=== PATIENT | male | born 1950 | race African-American/Black ===

== ENCOUNTER → 2016-12-20 | Outpatient (CLI) | payer MEDICARE, MEDICAID ==
[~2016-12-20] MED LIST: REGADENOSON INJ 0.4 MG/5 ML DISP.SYRIN IV ONE
--- NOTE | 2016-12-21 08:32 | RADIOLOGY REPORT ---
STRESS TEST REPORT PATIENT NAME: DALE YLNN ROOM#: DATE OF SERVICE: 12/20/2016 AGE: 66Y ORDER#: [id number] REFERRING MD: MILTON SCOTT M.D. INDICATION Chest pains. PROCEDURE PERFORMED REST/STRESS SINGLE ISOTOPE CARDIOLITE SPECT IMAGING WITH IV LEXISCAN STRESS AND GATED SPECT IMAGING CLINICAL HISTORY This is a 66-year-old white male with no known coronary artery disease, but has cardiac risk factors of Type II diabetes, hypertension, hypercholesterolemia, use of tobacco, and CKD. Current symptomatology includes chest pains. PROCEDURE The patient received IV Lexiscan 0.4 mg infused over ten seconds and flushed. The resting heart rate was 62 bpm and increased to 83 bpm eventually at end infusion. The resting BP was 151/74 and increased eventually to 167/71 after end infusion. The patient did not have any symptoms of chest pains but was slightly short of breath. The resting 12 lead EKG showed normal sinus rhythm, 62 bpm, left anterior fascicular block, T-inversions in the inferolateral leads, LVH. At end infusion, no increased T-inversions were seen. Myocardial perfusion imaging was performed at rest 60 minutes following injection of 14.43 mCi Cardiolite. Ten seconds after the IV Lexiscan injection, patient was injected with 45.5 mCi Cardiolite and flushed. Gated post stress tomographic imaging was performed 60 minutes after stress. FINDINGS The overall quality of the study is good. The left ventricular cavity is noted to be enlarged with end systolic volume of 91 cc on both the rest and stress studies. There is no abnormal transient ischemic dilatation of the left ventricle. TID ratio was 1.04. The overall LVEF is reduced to 35%. SPECT images showed a small area of moderate fixed perfusion defect in the apical inferior wall. There was no IV Lexiscan induced reversible ischemia. Gated SPECT imaging showed diffuse hypokinesis of all LV segments, in particular there was severe reduced motion contraction in the basal inferior wall. Left ventricular ejection fraction was calculated to be 35%. IMPRESSION: MYOCARDIAL PERFUSION IMAGING IS ABNORMAL. THERE IS A SMALL AREA OF MODERATELY FIXED PERFUSION DEFECT IN THE APICAL INFERIOR WALL. THERE WAS NO REVERSIBLE ISCHEMIA. OVERALL LEFT VENTRICULAR SYSTOLIC FUNCTION WAS REDUCED TO 35% WITH REDUCED MOTION AND CONTRACTION IN THE BASAL INFERIOR WALL, IN PARTICULAR, AND SOMEWHAT DIFFUSE HYPOKINESIS IN THE ENTIRE LEFT VENTRICLE. NO PRIOR STUDIES FOR COMPARISON. INTERPRETING PHYSICIAN: ELIZABETH BELTRÁN M.D. /: AICHA TT: [id number] ID: [id number] /: [id number] TD: [id number] JOB: [id number] cc:Ale SHRESTHA M.D. > [facility]
== END ==
LOC: RAD 06:55
PROVIDERS: ATTEND Internal Medicine Geriatric Medicine
DX: R07.89 Other chest pain (principal); R94.31 Abnormal electrocardiogram [ECG] [EKG]; I10 Essential (primary) hypertension
CPT/HCPCS: 93017; 78452; A9500; J2785; Q9969

== ENCOUNTER → 2018-01-10 | Outpatient (CLI) | payer MEDICARE, MEDICAID ==
[2018-01-10 17:27] LABS: ANION GAP 10 (5-19); BLOOD UREA NITROGEN 21 mg/dL (7-20); CALCIUM 9.2 mg/dL (8.4-10.2); CARBON DIOXIDE 23 mmol/L (22-30); CHLORIDE 114 mmol/L (98-107); GLUCOSE 101 mg/dL (75-110); POTASSIUM 4.5 mmol/L (3.6-5.0); SODIUM 147.4 mmol/L (137-145)
== END ==
LOC: OD 16:35
PROVIDERS: ATTEND Internal Medicine Geriatric Medicine
DX: N18.3 Chronic kidney disease, stage 3 (moderate) (principal)
CPT/HCPCS: 36415; 80048

== ENCOUNTER 2018-12-06 18:24 | Emergency (ER) | payer MEDICARE, MEDICAID ==
--- NOTE | 2018-12-06 19:42 | ER Document Report ---
ED Medical Screen (RME) - General Chief Complaint: Abdominal Pain Stated Complaint: ABDOMINAL PAIN Time Seen by Provider: 12/06/18 19:36 Primary Care Provider: MILTON SCOTT MD [Primary Care Provider] - Follow up as needed Mode of Arrival: Ambulatory Information source: Patient Notes: Patient is a delightful 68-year-old male presenting with abdominal pain that is been ongoing for approximately 10 days. He reports pain is mostly in the right side of the abdomen. He denies any nausea, vomiting or diarrhea. He denies fever. He states that he has had a decreased appetite. He reports no bowel movement in the last 2 to 3 days, he thinks it is possible that he is just severely constipated. Patient has not sought treatment for this. Exam: Tenderness to palpation of right lower quadrant without guarding or rebound. I have greeted and performed a rapid initial assessment of this patient. A comprehensive ED assessment and evaluation of the patient, analysis of test results and completion of the medical decision making process will be conducted by additional ED providers. Dictation of this chart was performed using voice recognition software; therefore, there may be some unintended grammatical errors. TRAVEL OUTSIDE OF THE [place] IN LAST 30 DAYS: No - Related Data Allergies/Adverse Reactions: No Known Allergies Allergy (Verified 12/06/18 18:25) Past Medical History - Social History Chew tobacco use (# tins/day): No Frequency of alcohol use: None Drug Abuse: Marijuana - Past Medical History Cardiac Medical History: Reports: Hx Hypertension Endocrine Medical History: Reports: Hx Diabetes Mellitus Type 1 Renal/ Medical History: Denies: Hx Peritoneal Dialysis Physical Exam - Vital signs Vitals: Temp Pulse Resp BP Pulse Ox 99.3 F 82 16 161/70 H 98 12/06/18 18:48 12/06/18 18:48 12/06/18 18:48 12/06/18 18:48 12/06/18 18:48 Course - Vital Signs Vital signs: Temp Pulse Resp BP Pulse Ox 99.3 F 82 16 161/70 H 98 12/06/18 18:48 12/06/18 18:48 12/06/18 18:48 12/06/18 18:48 12/06/18 18:48 Doctor's Discharge - Discharge Referrals: MILTON SCOTT MD [Primary Care Provider] - Follow up as needed
[2018-12-06 20:54] LABS: ABSOLUTE EOSINOPHILS # (AUTO) 0.2 10^3/uL (0.0-0.6); ABSOLUTE LYMPHOCYTES (AUTO) 1.7 10^3/uL (0.5-4.7); ABSOLUTE MONOCYTES (AUTO) 0.5 10^3/uL (0.1-1.4); ABSOLUTE NEUT (AUTO) 5.5 10^3/uL (1.7-8.2); BASOPHILS % (AUTO) 0.3 % (0-2); EOSINOPHILS % (AUTO) 2.3 % (0-6); HEMATOCRIT 44.3 % (37.9-51.0); HEMOGLOBIN 14.7 g/dL (13.5-17.0); LYMPHOCYTES % (AUTO) 21.9 % (13-45); MEAN CORPUSCULAR HGB CONC 33.2 g/dL (32.0-36.0); MEAN CORPUSCULAR VOLUME 84 fl (80-97); MONOCYTES % (AUTO) 6.8 % (3-13); PLATELET COUNT 191 10^3/uL (150-450); RED BLOOD COUNT 5.26 10^6/uL (4.35-5.55); SEGMENTED NEUTROPHILS % (AUTO) 68.7 % (42-78); TOTAL CELLS COUNTED % (AUTO) 100 %; WHITE BLOOD COUNT 7.9 10^3/uL (4.0-10.5)
--- NOTE | 2018-12-06 20:57 | RADIOLOGY REPORT (SQ) ---
EXAM DESCRIPTION: XR ABDOMEN 1 VIEW (KUB) COMPLETED DATE/TME: 12/06/2018 19:40 CLINICAL HISTORY: 68 years Male ,abd pain COMPARISON: None. TECHNIQUE: Single view of the abdomen was provided.. FINDINGS:Upper abdomen incompletely included on the image. No dilated loops of bowel to suggest obstruction. There are degenerative changes in the spine. There are moderate degenerative changes in the hips bilaterally with abundant osteophyte formation laterally. This may represent pincer deformity. Small amount of fecal material in the rectosigmoid. No abnormal calcifications noted. IMPRESSION: No acute plain film abnormality is identified. Degenerative changes in the hips with marginal osteophytosis that may reflect femoral acetabular impingement
[2018-12-06 21:12] LABS: ALANINE AMINOTRANSFERASE 29 U/L (21-72); ALBUMIN 4.5 g/dL (3.5-5.0); ALKALINE PHOSPHATASE 114 U/L (38-126); ANION GAP 13 (5-19); ASPARTATE AMINO TRANSFERASE 22 U/L (17-59); BILIRUBIN,DIRECT 0.3 mg/dL (0.0-0.4); BILIRUBIN,TOTAL 0.9 mg/dL (0.2-1.3); BLOOD UREA NITROGEN 24 mg/dL (7-20); CALCIUM 8.6 mg/dL (8.4-10.2); CARBON DIOXIDE 25 mmol/L (22-30); CHLORIDE 109 mmol/L (98-107); LIPASE 202.2 U/L (23-300); POTASSIUM 4.7 mmol/L (3.6-5.0); SODIUM 146.7 mmol/L (137-145); TOTAL PROTEIN 7.3 g/dL (6.3-8.2)
[2018-12-06 21:20] LABS: GLUCOSE 61 mg/dL (75-110)
[2018-12-06 21:31] LABS: APPEARANCE,URINE SLIGHTLY-CLOUDY; BILIRUBIN,URINE NEGATIVE (NEGATIVE); COLOR,URINE AMBER; GLUCOSE, URINE NEGATIVE (NEGATIVE); KETONES,URINE TRACE mg/dL (NEGATIVE); LEUKOCYTE ESTERASE,URINE SMALL (NEGATIVE); NITRITE,URINE NEGATIVE (NEGATIVE); PROTEIN,URINE 30 mg/dL (NEGATIVE); URINE SPECIFIC GRAVITY 1.025
[2018-12-06] MEDS ORDERED: NORMAL SALINE 1000 ML 1,000 ML IV ONE (22:59)
--- NOTE | 2018-12-06 23:06 | ER Document Report ---
ED General - General Chief Complaint: Abdominal Pain Stated Complaint: ABDOMINAL PAIN Time Seen by Provider: 12/06/18 19:36 Primary Care Provider: MILTON SCOTT MD [Primary Care Provider] - Follow up as needed DALE METCALF MD [ACTIVE STAFF] - Follow up in 1 week Mode of Arrival: Ambulatory Information source: Patient, [facility] Records Notes: 68-year-old male with hypertension, type 1 diabetes presents with right upper quadrant abdominal pain that has been ongoing for approximately 2 weeks. Patient describes the pain as stabbing, intermittent and currently not present. He denies any associated nausea, vomiting, diarrhea. He does report that he feels like he is constipated. He denies any black or bloody stools. He denies any exacerbating or relieving factors, fever, chills, chest pain, shortness of breath, dysuria, hematuria. TRAVEL OUTSIDE OF THE [place] IN LAST 30 DAYS: No - HPI Onset: Other Onset/Duration: Gradual, Intermittent, Gone Quality of pain: Stabbing Severity: None Pain Level: Denies Associated symptoms: denies: Chest pain, Diarrhea, Fever, Nausea, Vomiting, Shortness of breath Exacerbated by: Denies Relieved by: Denies Similar symptoms previously: No Recently seen / treated by doctor: No - Related Data Allergies/Adverse Reactions: No Known Allergies Allergy (Verified 12/06/18 18:25) Past Medical History - General Information source: Patient - Social History Smoking Status: Current Every Day Smoker Chew tobacco use (# tins/day): No Frequency of alcohol use: None Drug Abuse: Marijuana Lives with: Family Family History: Reviewed & Not Pertinent Patient has suicidal ideation: No Patient has homicidal ideation: No - Past Medical History Cardiac Medical History: Reports: Hx Hypertension Endocrine Medical History: Reports: Hx Diabetes Mellitus Type 1 Renal/ Medical History: Denies: Hx Peritoneal Dialysis Review of Systems - Review of Systems Notes: REVIEW OF SYSTEMS: CONSTITUTIONAL : Denies fever, chills, or sweats. Denies recent illness. Denies weight loss, recent hospitalizations. EENT: Denies visual changes, eye pain. Denies sore throat, oral lesions, difficulty swallowing. CARDIOVASCULAR: Denies chest pain. Denies palpitations. Denies lower extremity edema. RESPIRATORY: Denies cough. Denies shortness of breath, wheezing. GASTROINTESTINAL: + abdominal pain or distention. Denies nausea, vomiting, or diarrhea. Denies blood in vomitus, stools, or per rectum. Denies black, tarry stools. Denies constipation. GENITOURINARY: Denies difficulty urinating, painful urination, frequency, blood in urine, testicular pain or penile discharge. MUSCULOSKELETAL: Denies back or neck pain or stiffness. Denies joint pain or swelling. SKIN: Denies rash, lesions or sores. HEMATOLOGIC : Denies easy bruising or bleeding. LYMPHATIC: Denies swollen glands. NEUROLOGICAL: Denies confusion or altered mental status. Denies loss of co nsciousness. Denies dizziness or lightheadedness. Denies headache. Denies weakness or paralysis. Denies problems difficulty with ambulation, slurred speech. Denies sensory loss, numbness, or tingling. Denies seizures. PSYCHIATRIC: Denies anxiety or stress. Denies depression, suicidal ideation, or Physical Exam - Vital signs Vitals: Temp Pulse Resp BP Pulse Ox 99.3 F 82 16 161/70 H 98 12/06/18 18:48 12/06/18 18:48 12/06/18 18:48 12/06/18 18:48 12/06/18 18:48 - Notes Notes: PHYSICAL EXAMINATION: GENERAL: Well-appearing, well-nourished and in no acute distress. HEAD: Atraumatic, normocephalic. EYES: Pupils equal round and reactive to light, extraocular movements intact, sclera anicteric, conjunctiva are normal. ENT: Nares patent, oropharynx clear without exudates. Moist mucous membranes. NECK: Normal range of motion, supple without lymphadenopathy LUNGS: Breath sounds clear to auscultation bilaterally and equal. No wheezes rales or rhonchi. HEART: Regular rate and rhythm without murmurs ABDOMEN: Soft, nontender, nondistended abdomen. No guarding, no rebound. No masses appreciated. Musculoskeletal: Normal range of motion, no pitting or edema. No cyanosis. NEUROLOGICAL: Cranial nerves grossly intact. Normal speech, normal gait. Normal sensory, motor exams PSYCH: Normal mood, normal affect. SKIN: Warm, Dry, normal turgor, no rashes or lesions noted. Course - Re-evaluation Re-evalutation: 12/08/18 00:00 Microbiology 12/06/18 21:00 Urine Culture - Preliminary Clean Catch Midstream Laboratory 12/06/18 12/06/18 12/06/18 20:35 20:35 21:00 WBC 7.9 RBC 5.26 Hgb 14.7 Hct 44.3 MCV 84 MCH 28.0 MCHC 33.2 RDW 15.0 H Plt Count 191 Seg Neutrophils % 68.7 Lymphocytes % 21.9 Monocytes % 6.8 Eosinophils % 2.3 Basophils % 0.3 Absolute Neutrophils 5.5 Absolute Lymphocytes 1.7 Absolute Monocytes 0.5 Absolute Eosinophils 0.2 Absolute Basophils 0.0 VBG pH VBG pCO2 VBG HCO3 VBG Base Excess Sodium 146.7 H Potassium 4.7 Chloride 109 H Carbon Dioxide 25 Anion Gap 13 BUN 24 H Creatinine 2.49 H Est GFR ( Amer) 31 L Est GFR (Non-Af Amer) 26 L Glucose 61 L POC Glucose Calcium 8.6 Total Bilirubin 0.9 Direct Bilirubin 0.3 Neonat Total Bilirubin Not Reportable Neonat Direct Bilirubin Not Reportable Neonat Indirect Bili Not Reportable AST 22 ALT 29 Alkaline Phosphatase 114 Total Protein 7.3 Albumin 4.5 Lipase 202.2 Urine Color LUTHER Urine Appearance SLIGHTLY-CLOUDY Urine pH 5.0 Ur Specific [place] 1.025 Urine Protein 30 H Urine Glucose (UA) NEGATIVE Urine Ketones TRACE H Urine Blood NEGATIVE Urine Nitrite NEGATIVE Urine Bilirubin NEGATIVE Urine Urobilinogen 2.0 H Ur Leukocyte Esterase SMALL H Urine WBC (Auto) 17 Urine RBC (Auto) 3 U Hyaline Cast (Auto) 4 Squamous Epi Cells Auto 1 Urine Mucus (Auto) OCC Urine Ascorbic Acid 40 H 12/06/18 12/06/18 22:09 23:14 WBC RBC Hgb Hct MCV MCH MCHC RDW Plt Count Seg Neutrophils % Lymphocytes % Monocytes % Eosinophils % Basophils % Absolute Neutrophils Absolute Lymphocytes Absolute Monocytes Absolute Eosinophils Absolute Basophils VBG pH 7.33 VBG pCO2 51.6 VBG HCO3 26.3 VBG Base Excess -0.6 Sodium Potassium Chloride Carbon Dioxide Anion Gap BUN Creatinine Est GFR ( Amer) Est GFR (Non-Af Amer) Glucose POC Glucose 112 H Calcium Total Bilirubin Direct Bilirubin Neonat Total Bilirubin Neonat Direct Bilirubin Neonat Indirect Bili AST ALT Alkaline Phosphatase Total Protein Albumin Lipase Urine Color Urine Appearance Urine pH Ur Specific [place] Urine Protein Urine Glucose (UA) Urine Ketones Urine Blood Urine Nitrite Urine Bilirubin Urine Urobilinogen Ur Leukocyte Esterase Urine WBC (Auto) Urine RBC (Auto) U Hyaline Cast (Auto) Squamous Epi Cells Auto Urine Mucus (Auto) Urine Ascorbic Acid KUB X-Ray 12/06/18 19:40 IMPRESSION: No acute plain film abnormality is identified. Degenerative changes in the hips with marginal osteophytosis that may reflect femoral acetabular impingement Abdomen Ultrasound 12/06/18 23:03 IMPRESSION: Cholelithiasis without sonographic evidence of acute cholecystitis Mildly dilated common duct with an echogenic focus suggesting choledocholithiasis Temp Pulse Resp BP Pulse Ox 98 F 70 11 L 175/84 H 100 12/06/18 23:12 12/06/18 23:12 12/07/18 00:41 12/07/18 00:41 12/07/18 00:41 68-year-old male presents with right upper quadrant abdominal pain which is currently absent. Vital signs reviewed and within normal limits except for some elevated blood pressure. Patient does not appear toxic. He is in no acute distress. Patient has gallstones with no evidence of cholecystitis. There is mildly dilated bile ducts with an echogenic foci which could indicate choledocholithiasis. States that he will take his findings to his primary care physician. Patient has had no pain, vomiting. LFTs within normal limits. R epeat abdominal exams are benign. Patient does have an elevated creatinine which is slightly greater than his baseline but he admittedly states that he has not been drinking enough water. Patient is requesting discharge home. Patient was provided copies of his urged to follow-up with his primary care physician as soon as possible and return with any worsening pain. Patient was evaluated and treated as appropriate for the patient's presenting symptoms and complaint, with consideration of any critical or life threatening conditions that may be associated with their obtained history and exam as noted above. All results were discussed with patient . Patient provided the opportunity to ask questions, and express concerns. Patient was educated on treatments based on their presumed diagnosis as noted above. At this time we will discharge the patient with return precautions and follow-up recommendations. Verbal discharge instructions given a the bedside. Medication warnings reviewed. Patient is in agreement with this plan and has verbalized understanding of return precautions. After careful consideration I feel that that patient can be safely discharged from the emergency department, they were advised to followup with a primary care physician in 2-3 days. Dictation on this chart was performed using voice recognition software and may result in unintended grammatical, spelling, syntax or errors. - Vital Signs Vital signs: Temp Pulse Resp BP Pulse Ox 98 F 70 11 L 175/84 H 100 12/06/18 23:12 12/06/18 23:12 12/07/18 00:41 12/07/18 00:41 12/07/18 00:41 - Laboratory Result Diagrams: 12/06/18 20:35 12/06/18 20:35 Laboratory results interpreted by me: 12/06/18 12/06/18 12/06/18 20:35 20:35 21:00 RDW 15.0 H Sodium 146.7 H Chloride 109 H BUN 24 H Creatinine 2.49 H Est GFR ( Amer) 31 L Est GFR (Non-Af Amer) 26 L Glucose 61 L POC Glucose Urine Protein 30 H Urine Ketones TRACE H Urine Urobilinogen 2.0 H Ur Leukocyte Esterase SMALL H Urine Ascorbic Acid 40 H 12/06/18 22:09 RDW Sodium Chloride BUN Creatinine Est GFR ( Amer) Est GFR (Non-Af Amer) Glucose POC Glucose 112 H Urine Protein Urine Ketones Urine Urobilinogen Ur Leukocyte Esterase Urine Ascorbic Acid - Diagnostic Test Radiology reviewed: Image reviewed, Reports reviewed Discharge - Discharge Clinical Impression: Right upper quadrant abdominal pain, Biliary colic, Gallstones Condition: Good Disposition: HOME, SELF-CARE Instructions: Bulk Laxatives, Constipation ([facility]), Gallbladder Disease ([facility]), Low-Fat Diet ([facility]) Additional Instructions: You were seen for pain in your abdomen that is likely related to gallstones. Your work-up today does not show any signs that you need to have your gallbladder removed tonight. However, you will likely need surgery as an outpatient in the coming weeks. Please contact the surgery clinic in the next 24-48 hours to discuss the need for further evaluation and consideration of surgery. Return to the ED immediately if you develop worsening pain, persistent vomiting, become unable to tolerate fluids, have a fever of >1004, or any other symptoms that are concerning to you. Referrals: MILTON SCOTT MD [Primary Care Provider] - Follow up as needed DALE METCALF MD [ACTIVE STAFF] - Follow up in 1 week
[2018-12-06 23:26] LABS: VENOUS BLOOD BASE EXCESS -0.6 mmol/L; VENOUS BLOOD HCO3 26.3 mmol/L (20-32); VENOUS BLOOD PCO2 51.6 mmHg (35-63); VENOUS BLOOD PH 7.33 (7.30-7.42)
--- NOTE | 2018-12-07 00:14 | RADIOLOGY REPORT (SQ) ---
EXAM DESCRIPTION: CLINICAL HISTORY: 68 years Male ruq pain COMPARISON: None. TECHNIQUE: Transabdominal grayscale imaging performed to evaluate the abdomen. FINDINGS: Pancreas appears unremarkable. Aorta is normal in caliber. Liver is normal in size. Hepatopedal portal vein. Numerous gallstones the gallbladder. No evidence of gallbladder wall thickening. Common bile duct measures 8 mm. This is mildly prominent for the patient's age to mildly prominent. Echogenic focus in the common bile duct which may reflect a stone. This measures eight mm. Numerous cortical cysts in the right kidney. No hydronephrosis. IMPRESSION: Cholelithiasis without sonographic evidence of acute cholecystitis Mildly dilated common duct with an echogenic focus suggesting choledocholithiasis
[2018-12-07 01:15] VITALS: BP 175/84
== END 2018-12-07 01:00 | disposition home or self-care (01) ==
LOC: ER 18:24
DX: K80.20 Calculus of gallbladder without cholecystitis without obstruction (principal); R10.11 Right upper quadrant pain; M25.752 Osteophyte, left hip; M25.751 Osteophyte, right hip; E10.9 Type 1 diabetes mellitus without complications; F17.200 Nicotine dependence, unspecified, uncomplicated; I10 Essential (primary) hypertension
CPT/HCPCS: 99284; 36415; 87086; 82962; 83690; 85025; 87088; 80053; 81001; 82803; 74018; 76705; J7030

== ENCOUNTER 2019-01-30 06:58 | Day surgery (SDC) | payer MEDICARE, MEDICAID ==
[2019-01-21 09:41] LABS: HEMOGLOBIN 12.9 g/dL (13.5-17.0); MEAN CORPUSCULAR VOLUME 85 fl (80-97); PLATELET COUNT 245 10^3/uL (150-450); RED BLOOD COUNT 4.59 10^6/uL (4.35-5.55); RED CELL DISTRIBUTION WIDTH 15.4 % (11.5-14.0); WHITE BLOOD COUNT 8.7 10^3/uL (4.0-10.5)
[2019-01-21 10:35] LABS: ALANINE AMINOTRANSFERASE 42 U/L (21-72); ALBUMIN 3.9 g/dL (3.5-5.0); ALKALINE PHOSPHATASE 107 U/L (38-126); AMYLASE 154 U/L (30-110); ANION GAP 7 (5-19); ASPARTATE AMINO TRANSFERASE 23 U/L (17-59); BILIRUBIN,DIRECT 0.4 mg/dL (0.0-0.4); BILIRUBIN,TOTAL 0.4 mg/dL (0.2-1.3); BLOOD UREA NITROGEN 20 mg/dL (7-20); CALCIUM 8.6 mg/dL (8.4-10.2); CARBON DIOXIDE 23 mmol/L (22-30); CHLORIDE 113 mmol/L (98-107); GLUCOSE 170 mg/dL (75-110); POTASSIUM 4.5 mmol/L (3.6-5.0); SODIUM 143.3 mmol/L (137-145); TOTAL PROTEIN 7.2 g/dL (6.3-8.2)
--- NOTE | 2019-01-22 00:40 | EKG REPORT ---
SEVERITY:- ABNORMAL ECG - SINUS OR ECTOPIC ATRIAL RHYTHM NONSPECIFIC IVCD WITH LAD LVH WITH SECONDARY REPOLARIZATION ABNORMALITY ANTERIOR Q WAVES, POSSIBLY DUE TO LVH : Confirmed by: Poncho Poon 22-Jan-2019 00:39:32
[~2019-01-30 06:58] MED LIST changes: +ACETAMINOPHEN 325 MG TABLET PO PRN; +CEFAZOLIN 1 GM/D5W RTU 1 GM/50 ML RTUPB IV ONE; +CEFAZOLIN 1 GM/D5W RTU 1 GM/50 ML RTUPB IV PRN; +FENTANYL CITRATE INJ/PF 100 MCG/2 ML AMPUL ONE; +LACTATED RINGERS 1000 ML IV PRN; +LIDOCAINE 0.5% INJ-PF (5 MG/ML) 50 ML SDV SUBCUT PRN; +MIDAZOLAM 2 MG/2 ML INJ ONE; +PROPOFOL INJ 200 MG/20 ML VIAL IV ONE; -REGADENOSON INJ 0.4 MG/5 ML DISP.SYRIN IV ONE
[2019-01-30] MEDS ORDERED: BUPIVACAINE HCL 0.25 % INJ/PF (2.5 MG/1 ML) 30 ML VIAL ONE (10:03)
[2019-01-30] MEDS ORDERED: DEXTROSE 50%-WATER 25 GM/50 ML DISP.SYRIN IV ONE (10:13)
[2019-01-30] MEDS ORDERED: MEPERIDINE HCL/PF INJ 25 MG/1 ML DISP.SYRIN IV PRN (10:40)
[2019-01-30] MEDS ORDERED: OXYCODONE-ACETAMINOPHEN 5-325 MG TABLET PO PRN ×3 (10:40→12:10)
[2019-01-30] MEDS ORDERED: DIPHENHYDRAMINE HCL 50 MG/ML VIAL IV PRN (10:40)
[2019-01-30] MEDS ORDERED: FENTANYL CITRATE INJ/PF 100 MCG/2 ML AMPUL IV PRN ×3 (10:40)
[2019-01-30] MEDS ORDERED: MORPHINE SULFATE 10 MG/ML INJ IV PRN (10:40)
[2019-01-30] MEDS ORDERED: ONDANSETRON HCL INJ/PF 4 MG/2 ML SDV IV PRN (10:45)
[2019-01-30] MEDS ORDERED: SUCCINYLCHOLINE CHLORIDE INJ 200 MG/10 ML VIAL ONE (11:10)
[2019-01-30] MEDS ORDERED: ROCURONIUM BROMIDE INJ 50 MG/5 ML VIAL IV ONE (11:10)
--- NOTE | 2019-01-30 12:10 | Discharge Summary ---
Discharge Summary (SDC) - Discharge Final Diagnosis: cholelithiasis Date of Surgery: 01/30/19 Discharge Date: 01/30/19 Condition: Good Forms: ASU Anesthesia D/C Instruction, Discharge POC-Surgical Service Treatment or Instructions: [facility] [address], [place] [address] Discharge Instructions: Laparoscopic Surgery 1. General Information: a. DO NOT DRIVE a car or operate dangerous machinery for 3-4 days or while taking narcotic pain pills. b. DO NOT consume alcohol, tranquilizers, sleeping medications or any non- prescribed medications for 24 hours unless approved by your doctor or as long as taking narcotic prescription medications. c. DO NOT make important decisions or sign any important papers for the first 24 hours after surgery. d. When discharged home the same day of surgery have a responsible person with you for the first night. 2. Activity Restrictions: 2 weeks. a. NO heavy lifting, straining abdominal muscles, bending over a lot, yard work, house work, or sports for [address] for 3-4 days. c. It is fine to go for walks, up and down steps, ride in a car. d. Elevate your head when sleeping/resting. 3. Treatment: a. You may shower 48 hours after surgery, no baths or swimming for 2 weeks. Remove band-aids or dressings before shower but leave paper strips (steri- strips) on the skin to fall off on their own. If still on at postoperative visit they will be removed then. b. Drainage of fluid or blood is not unusual from an incision. If occurs, you can clean with peroxide and cotton ball daily and cover with dry gauze until the wound seals. c. If a lot of bleeding occurs, you can hold pressure with a gauze or cloth over the site for 10 minutes and it will usually stop. If bleeding continues you will need to call for possible evaluation in office or emergency room. 4. Medications: a. _Toradol__ may be taken for pain as needed, one tablet every 6 hours. Do not take any additional NSAIDs with Toradol b. You should resume all normal medications unless a change is specified by your doctors. 5. Diet: Begin with clear liquids and may progress to your normal diet if not nauseated. No high fat, high protein foods the day of surgery. 6. The following may occur after laparoscopic surgery: a. Shoulder or upper back ache from retained gas that should resolve in 1-2 days b. Soreness and bruising at incision sites will resolve with time. c. Scrotal swelling (labia in women) and bruising is often seen after hernia surgery. d. Sore throat e. Fatigue may last days to weeks. f. Difficulty urinating may occur and may need to come into emergency room for urinary catheter placement. 7. Notify Physician If: a. Worsening or pain not improved with pain medication b. Persistent nausea and vomiting c. Fever above 101 d. Persistent bleeding or swelling at operative site e. Unable to urinate and uncomfortable bladder 6-8 hours after surgery 8..Follow Up Care: a. Schedule a follow up appointment with your doctor for 2 weeks. In the event of any postoperative problems or questions or you may call the office during business hours or the On-Call physician evenings and weekends at [facility]. [facility] I understand the instructions for my postoperative care as described above and a copy has been given to me. Patient/Significant Other Witness Date Prescriptions: Ketorolac Tromethamine [Toradol 10 mg Tablet] 10 mg PO Q6HP PRN #20 tablet PRN Reason: Referrals: DALE METCALF MD [ACTIVE STAFF] - 02/12/19 1:00 pm Discharge Diet: Other (Comments) - small bland meals then progress Discharge Activity: Balance Activity w/Rest, No Lifting Over 10 Pounds, No Lifting/Push/Pulling, Walk Frequently Report the Following to Your Physician Immediately: Nausea, Vomiting, Increase in Pain, Fever over 101 Degrees, Unusual Bleeding, Redness, Swelling, Warmth, Drainage-Foul Smelling
--- NOTE | 2019-01-30 12:14 | Operative Report ---
Operative Report DATE OF SURGERY: 01/30/19 PREOPERATIVE DIAGNOSIS: 1. Symptomatic cholelithiasis with cholecystitis. 2. Dilated common bile duct POSTOPERATIVE DIAGNOSIS: With severe, acute and chronic cholecystitis;. Possible choledocholithiasis OPERATION: 1. Laparoscopic cholecystectomy. 2. Intraoperative cholangiography. 3. Interpretation of intraoperative cholangiography. 4. Drainage of subhepatic space SURGEON: DALE METCALF 1ST [employer] PREP TEACHER: ROMAIN PARSON ANESTHESIA: GA TISSUE REMOVED OR ALTERED: Gallbladder with contents COMPLICATIONS: None ESTIMATED BLOOD LOSS: 25 cc INTRAOPERATIVE FINDINGS: See below PROCEDURE: After obtaining informed consent, the patient was taken to the operating room. General Anesthesia was induced; the arms were extended, and the abdomen was exposed, and prepped and draped in a sterile fashion. Instrumentation was set up for laparoscopic cholecystectomy. Surgical plan and surgical timeout were conducted. A vertical incision was made above the umbilicus, and a verres needle was inserted uneventfully into the peritoneal cavity. Pneumoperitoneum was established. The verres needle was removed and a 5 mm trocar was inserted and a 5 mm flexible laparoscope was inserted. Visualization of the peritoneal cavity confirmed safe uneventful entry. Under direct visualization 3 additional 5 mm ports were established, one in the subxiphoid position and second in the subcostal position. The findings were significant for an acute and chronically inflamed gallbladder. The gastric duodenal ligament, as well as the proximal left transverse colon were adhesed to the inferior surface of the gallbladder. Using a combination of hook electrocautery dissection, we are able to free the undersurface of the gallbladder from the structures. We approached the neck of the gallbladder in the standard laparoscopic fashion. We divided the peritoneal reflection, begin opening up the junction between the gallbladder neck, and the cystic duct. The dominant cystic artery was in its typical location. It was somewhat calcified. It was surrounded with a right angle clamp, clipped twice proximal to distally divided. We worked methodically on both medial sides of the triangle of Calot, in this area nicely and took pictures, however because of the patulous nature of the neck of the gallbladder, I chose to transition to a top-down approach. We repositioned our graspers, began to take the gallbladder off of the undersurface of the right lobe of the liver. There were dense, chronic as well as acute inflammatory changes requiring methodical, meticulous electrocautery and suction dissection to separate the anterior and apical side of the gallbladder from the liver bed. Several entries into the gallbladder occurred. There was some spillage of caviar-like stones. There was a posterior branch of the cystic artery which was cauterized as encountered. Eventually we had the gallbladder suspended from its neck. Photos were taken. We placed a 0 PDS Endoloop around the neck of the gallbladder. We now opened up the distal cystic duct, and was full of small stones. Photos were taken. We spent approximately 15 minutes irrigating, debriding and cleaning out the cystic duct. We now brought onto the field through a separate stab wound in the anterior abdominal wall a disposable, non-balloon cholangiogram catheter. This was filled into the cystic duct, and a laparoscopic grasper used to secure the end opening of the cystic duct and cholangiogram catheter. We level the patient out, brought the fluoroscopic instrument in place, and imaged using full-strength contrast approximately 10 cc. This revealed no evidence of leak in the biliary system, and complete visualization of the intra- , and extrahepatic biliary tree. The common bile duct was dilated, but then tapered towards the intra-pancreatic component and the ampulla. There was rapid egress into the duodenum, however there appeared to be filling abnormalities in the distal common bile duct suspicious for retained common duct stones. We Did not have a formal radiologic interpretation at this time. We deemed the cholangiogram complete. We returned to the peritoneal cavity, remove the cholangiogram catheter, and secured the cystic duct stump with a 0 PDS loop. We did place a drain through the extreme right upper quadrant port site incision, trimmed to the appropriate length, and positioned it into place in the subhe patic space. It was secured to the skin with a 2-0 Ethilon suture. The drain was a large Axel. The gallbladder and residual stones in the peritoneal cavity were placed in an Endobag position through the supra umbilical port site after extending the fascial opening. Specimens were removed from the peritoneal cavity uneventfully and sent to pathology. We returned instruments to the peritoneal cavity, inspected our cystic duct and loop high and all were in good position. There is no mechanical bleeding undersurface of the liver. We level the patient had a check for bleeding there was none. We [place] the operation was complete. The subcutaneous tissue was then anesthetized with quarter percent Marcaine Sponge and needle counts are correct. All ports removed under direct visualization pneumoperitoneum evacuated, the super umbilical port site was closed with interrupted 0 Vicryl suture. And 5 mm port wounds closed with 3-0 Vicryl suture, benzoin and Steri- Strips. The patient was extubated, and taken to the recovery room in stable condition. The physician clinical trial assistant, Ms. Salmeron, provided assistance during this case by: Assisting and port insertion, retracting tissue, instillation of local anesthesia and closure of skin incisions.
[2019-01-30] MEDS ORDERED: DEXAMETHASONE SOD PHOSPHATE INJ 4 MG/1 ML VIAL ONE (12:21)
[2019-01-30] MEDS ORDERED: FENTANYL CITRATE INJ/PF 100 MCG/2 ML AMPUL ONE (12:21)
[2019-01-30] MEDS: FENTANYL CITRATE INJ/PF 100 MCG/2 ML AMPUL ONE ×2 (12:52→12:57)
[2019-01-30] MEDS ORDERED: OXYCODONE-ACETAMINOPHEN 5-325 MG TABLET ONE (13:33)
[2019-01-30] MEDS ORDERED: LOSARTAN POTASSIUM 50 MG TABLET PO ONE (14:30)
[2019-01-30 15:12] VITALS: BP 173/90
--- NOTE | 2019-01-30 15:47 | RADIOLOGY REPORT (SQ) ---
EXAM DESCRIPTION: CHOLANGIOGRAM OPERATIVE COMPLETED DATE/TIME: 01/30/2019 2:44 pm REASON FOR STUDY: CHOLANGIOGRAM IN OR K80.20 CALCULUS OF GALLBLADDER W/O CHOLECYSTITIS W/O OBSTRUC Z01.818 ENCOUNTER FOR OTHER PREPROCEDURAL EXAMINATION COMPARISON: None. FLUOROSCOPY TIME: 1 second 4 images saved to PACS. TECHNIQUE: Cinegraphic images were obtained from an intraoperative cholangiogram. LIMITATIONS: None. FINDINGS: There is opacification of the bile ducts, cystic duct remnants and second portion of the d uodenum. Filling defect within the distal CBD noted with evidence of contrast traversing this area. There is mild upstream dilation of the upstream CBD. No significant extravasation identified. IMPRESSION: Intraoperative cholangiogram with evidence of distal CBD filling defect, likely stones o r sludge, with mild upstream dilation. Contrast traverses this area. FINDINGS DISCUSSED WITH DR. METCALF AT 1541 HOURS ON 01/30/2019 COMMENT: Quality ID 145: Final reports for procedures using fluoroscopy that document radiation exp osure indices, or exposure time and number of fluorographic images (if radiation exposure indices are not available) TECHNICAL DOCUMENTATION: JOB ID: [id number] [employer]- All Rights Reserved Reading location - IP/workstation name: [email or web address]
== END 2019-01-30 15:02 | disposition home or self-care (01) ==
LOC: OROUT 06:58
PROVIDERS: ATTEND Surgery
DX: K80.10 Calculus of gallbladder with chronic cholecystitis without obstruction (principal); K83.8 Other specified diseases of biliary tract; E11.22 Type 2 diabetes mellitus with diabetic chronic kidney disease; I12.9 Hypertensive chronic kidney disease with stage 1 through stage 4 chronic kidney disease, or unspecified chronic kidney disease; N18.9 Chronic kidney disease, unspecified; E78.5 Hyperlipidemia, unspecified; F17.210 Nicotine dependence, cigarettes, uncomplicated; Z01.818 Encounter for other preprocedural examination; Z79.899 Other long term (current) drug therapy; Z79.84 Long term (current) use of oral hypoglycemic drugs; Z79.82 Long term (current) use of aspirin
CPT/HCPCS: 93005; 36415; 82962; 82150; 85027; 80076; 80048; 88304 ×2; 74300; 93010; 47563; J2250; J0690; J3490 ×2; J1100; A9270 ×2; J3010; J0330; J2704; 790

== ENCOUNTER → 2019-02-12 | Outpatient (CLI) | payer MEDICARE, MEDICAID ==
[2019-02-12 15:01] LABS: ALANINE AMINOTRANSFERASE 25 U/L (21-72); ALBUMIN 4.1 g/dL (3.5-5.0); ALKALINE PHOSPHATASE 122 U/L (38-126); ASPARTATE AMINO TRANSFERASE 19 U/L (17-59); BILIRUBIN,DIRECT 0.3 mg/dL (0.0-0.4); BILIRUBIN,TOTAL 0.6 mg/dL (0.2-1.3); TOTAL PROTEIN 7.2 g/dL (6.3-8.2)
== END ==
LOC: OD 13:42
PROVIDERS: ATTEND Physician Assistant Surgical
DX: K80.50 Calculus of bile duct without cholangitis or cholecystitis without obstruction (principal)
CPT/HCPCS: 36415; 80076

== ENCOUNTER → 2019-09-02 | Outpatient (CLI) | payer MEDICARE, MEDICAID ==
[2019-09-02 14:31] LABS: ABSOLUTE EOSINOPHILS # (AUTO) 0.1 10^3/uL (0.0-0.6); ABSOLUTE LYMPHOCYTES (AUTO) 1.8 10^3/uL (0.5-4.7); ABSOLUTE MONOCYTES (AUTO) 0.4 10^3/uL (0.1-1.4); ABSOLUTE NEUT (AUTO) 4.9 10^3/uL (1.7-8.2); BASOPHILS % (AUTO) 0.5 % (0-2); EOSINOPHILS % (AUTO) 2.1 % (0-6); HEMATOCRIT 41.8 % (37.9-51.0); LYMPHOCYTES % (AUTO) 24.6 % (13-45); MEAN CORPUSCULAR HEMOGLOBIN 28.4 pg (27.0-33.4); MEAN CORPUSCULAR HGB CONC 33.5 g/dL (32.0-36.0); MEAN CORPUSCULAR VOLUME 85 fl (80-97); MONOCYTES % (AUTO) 5.3 % (3-13); PLATELET COUNT 152 10^3/uL (150-450); RED BLOOD COUNT 4.94 10^6/uL (4.35-5.55); RED CELL DISTRIBUTION WIDTH 15.1 % (11.5-14.0); SEGMENTED NEUTROPHILS % (AUTO) 67.5 % (42-78); TOTAL CELLS COUNTED % (AUTO) 100 %; WHITE BLOOD COUNT 7.2 10^3/uL (4.0-10.5)
[2019-09-02 14:54] LABS: ALBUMIN 4.2 g/dL (3.5-5.0); ALKALINE PHOSPHATASE 108 U/L (38-126); ANION GAP 11 (5-19); ASPARTATE AMINO TRANSFERASE 25 U/L (17-59); BILIRUBIN,DIRECT 0.3 mg/dL (0.0-0.4); BILIRUBIN,TOTAL 0.7 mg/dL (0.2-1.3); BLOOD UREA NITROGEN 21 mg/dL (7-20); CALCIUM 8.5 mg/dL (8.4-10.2); CARBON DIOXIDE 23 mmol/L (22-30); CHLORIDE 111 mmol/L (98-107); GLUCOSE 128 mg/dL (75-110); PHOSPHORUS 3.4 mg/dL (2.5-4.5); POTASSIUM 4.3 mmol/L (3.6-5.0); TOTAL PROTEIN 7.6 g/dL (6.3-8.2)
== END ==
LOC: LAB 14:12
PROVIDERS: ATTEND Internal Medicine Geriatric Medicine
DX: N18.4 Chronic kidney disease, stage 4 (severe) (principal); E55.9 Vitamin D deficiency, unspecified
CPT/HCPCS: 36415; 80053; 82306; 83970; 84100; 85025